=== PATIENT | female | born 1980 | race Caucasian/White ===

== ENCOUNTER 2020-10-18 12:44 | Emergency (ER) | payer BC, OTHER | END 2020-10-18 13:17 | disposition home or self-care (01) | LOC: JVIRT 12:44 | DX: Z20.828 Contact with and (suspected) exposure to other viral communicable diseases (principal) | CPT/HCPCS: C9803; Q3014-GT; U0003 ==

== ENCOUNTER 2020-11-04 16:42 | Emergency (ER) | payer BC, OTHER | END 2020-11-04 16:54 | disposition home or self-care (01) | LOC: JVIRT 16:42 | DX: Z11.52 Encounter for screening for COVID-19 (principal) | CPT/HCPCS: C9803; G2012-GT; U0003 ==

== ENCOUNTER 2022-04-05 03:24 | Emergency (ER) | payer BC, OTHER ==
[2022-04-05 03:37] VITALS: BP 112/73; PULSE 86; TEMP 98.6; BMI 26.6
== END 2022-04-05 06:21 | disposition home or self-care (01) ==
LOC: FER 03:24
DX: F10.920 Alcohol use, unspecified with intoxication, uncomplicated (principal)
CPT/HCPCS: 99283-25